=== PATIENT | male | born 1960 | race Caucasian/White ===

== ENCOUNTER 2017-08-03 11:37 | Outpatient (CLI) | payer OTHER ==
[2017-08-03] MEDS ORDERED: NALOXONE HCL 0.4 MG/ML INJ IVP PRN (12:01)
[2017-08-03] MEDS ORDERED: fentaNYL 100 MCG/2 ML INJ IVP PRN (12:01)
[2017-08-03] MEDS ORDERED: MEPERIDINE 25 MG/ML SYR IVP PRN (12:01)
[2017-08-03] MEDS ORDERED: FLUMAZENIL 0.5 MG/5 ML MDV IVP PRN (12:01)
[2017-08-03] MEDS ORDERED: MIDAZOLAM 2 MG/2 ML VIAL IVP PRN (12:01)
[2017-08-03] MEDS ORDERED: NS 1,000 ML IV SCH (12:15)
[2017-08-03] MEDS ORDERED: ACETAMINOPHEN 325 MG TAB PO PRN (12:40)
[2017-08-03] MEDS ORDERED: ONDANSETRON 4 MG/2 ML VIAL IVP PRN (12:40)
--- NOTE | 2017-08-03 12:44 | PDRADPRE ---
Radiology History & Physical Indication for procedure: back pain Home medications: Cbd Oil/Hemp DAILY 07/25/17 [Last Taken Unknown] Lisinopril 10 mg PO DAILY 07/25/17 [Last Taken Unknown] Lunesta 3 mg PO HS 07/25/17 [Last Taken Unknown] Naproxen 500 mg PO DAILY PRN 07/25/17 [Last Taken Unknown] Proair Hfa 2 puffs PRN 07/25/17 [Last Taken Unknown] Xanax 0.5 MG (*) 0.5 mg PO HS 07/25/17 [Last Taken Unknown] Allergies/Adverse Reactions: No Allergies [NKDA] Allergy (Verified 08/03/17 12:10) Heart exam: regular rate and rhythm (RRR) Lungs exam: clear to auscultation (CTA) Mallampati Score: Class 1
--- NOTE | 2017-08-03 12:46 | PDRADPN ---
Radiology Procedure Note Date of Procedure: 08/03/17 Radiologist: Mehdi Cantu Anesthesia: IV Sedation (Versed and fentanyl) Pre-op Diagnosis: DDD c-spine with hardware Indication: Moderate sedation for MRI, claustrophobia Procedure: Moderate sedation Finding(s): Neck pain Inf/Abcess present in the surg proc area at time of surgery?: No
--- NOTE | 2017-08-03 12:47 | PDPROPOC ---
Sedation Plan of Care Sedation Plan of Care: vital signs stable, patient educated of risks, benefits, alternatives, patient can tolerate sedation ASA Classification: ASA 1 Planned drugs: fentanyl, midazolam Mallampati Score: Class 1 Mallampati Reference Image: Patient passed 3-3-2 rule?: Yes
[2017-08-03 14:07] VITALS: BP 124/82; RESP 18; TEMP 208.9; O2SAT 95
[2017-08-03 14:35] VITALS: PULSE 64
== END 2017-08-03 14:46 | disposition home or self-care (01) ==
LOC: FIMAGING 11:37
PROVIDERS: ATTEND Family Medicine
PROC: BR30ZZZ Magnetic Resonance Imaging (MRI) of Cervical Spine (ICD-10-PCS; principal; 2017-08-03 13:46)
DX: M50.10 Cervical disc disorder with radiculopathy, unspecified cervical region (principal); M48.02 Spinal stenosis, cervical region; M50.30 Other cervical disc degeneration, unspecified cervical region; M54.9 Dorsalgia, unspecified
CPT/HCPCS: J2250; J2310; J3010

== ENCOUNTER 2017-09-16 11:40 | Outpatient (CLI) | payer OTHER ==
[2017-09-16] MEDS ORDERED: MIDAZOLAM 2 MG/2 ML VIAL IVP PRN ×2 (11:59→13:01)
[2017-09-16] MEDS ORDERED: FLUMAZENIL 0.5 MG/5 ML MDV IVP PRN ×2 (11:59→13:01)
[2017-09-16] MEDS ORDERED: NALOXONE HCL 0.4 MG/ML INJ IVP PRN ×2 (11:59→13:01)
[2017-09-16] MEDS ORDERED: fentaNYL 100 MCG/2 ML INJ IVP PRN ×2 (11:59→13:01)
[2017-09-16] MEDS ORDERED: MEPERIDINE 25 MG/ML SYR IVP PRN ×2 (11:59→13:01)
[2017-09-16] MEDS ORDERED: NS 1,000 ML IV SCH ×2 (12:00→13:15)
[2017-09-16] MEDS ORDERED: MIDAZOLAM 2 MG/2 ML VIAL ONE (12:05)
[2017-09-16] MEDS ORDERED: fentaNYL 100 MCG/2 ML INJ ONE (12:05)
[2017-09-16 12:42] VITALS: PULSE 63; RESP 16
--- NOTE | 2017-09-16 13:03 | PDPROPOC ---
Sedation Plan of Care Sedation Plan of Care: vital signs stable, mental status noted, patient educated of risks, benefits, alternatives, patient can tolerate sedation ASA Classification: ASA 1 Planned drugs: fentanyl, midazolam Mallampati Score: Class 2 Mallampati Reference Image: Patient passed 3-3-2 rule?: Yes
--- NOTE | 2017-09-16 13:04 | PDGENHP ---
History & Physical Chief Complaint: left shoulder pain, claustrophobia History of Present Illness: left shoulder arthritis and pain Cardiorespiratory Assessment: rrr, lungs clear
[2017-09-16] MEDS ORDERED: ACETAMINOPHEN 325 MG TAB PO PRN (14:09)
[2017-09-16] MEDS ORDERED: ONDANSETRON 4 MG/2 ML VIAL IVP PRN (14:09)
[2017-09-16 14:26] VITALS: TEMP 97.5
[2017-09-16 15:03] VITALS: BP 141/84; O2SAT 94
== END 2017-09-16 15:15 | disposition home or self-care (01) ==
LOC: FIMAGING 11:40
PROVIDERS: ATTEND Family Medicine
DX: M19.012 Primary osteoarthritis, left shoulder (principal); M24.112 Other articular cartilage disorders, left shoulder
CPT/HCPCS: J2250; J2310; J2405; J3010